=== PATIENT | male | born 1965 | race Caucasian/White ===

== ENCOUNTER 2022-10-31 00:56 | Emergency (ER) | payer OTHER ==
[2022-10-31 01:02] VITALS: BP 131/73; PULSE 80; RESP 18; TEMP 97.9; BMI 30.4
[2022-10-31] MEDS ORDERED: BUPIVACAINE HCL/PF 0.5% (5 MG/ML) 30 ML VIAL IJ ONE (01:29)
[2022-10-31] MEDS ORDERED: BUPIVACAINE HCL/PF 0.5% (5MG/ML) 10 ML VIAL ONE (01:30)
[2022-10-31] MEDS ORDERED: AMOX TR/POT CLAV 875MG/125MG TABLETS (FP) PO ONE (02:01)
[2022-10-31] MEDS ORDERED: AMOX TR/POT CLAV 875MG/125MG TABLETS (FP) ONE (02:24)
== END 2022-10-31 02:38 | disposition home or self-care (01) ==
LOC: JER 00:56
DX: K08.89 Other specified disorders of teeth and supporting structures (principal); G89.29 Other chronic pain; K04.7 Periapical abscess without sinus; R22.0 Localized swelling, mass and lump, head
CPT/HCPCS: 99283-25

== ENCOUNTER 2022-10-31 03:05 | Inpatient (IN) | payer OTHER ==
[2022-10-31 03:25] VITALS: BMI 30.4
[2022-10-31] MEDS ORDERED: hydrOXYzine PAMOATE 25 MG CAPSULE (FP) PO PRN (03:26)
[2022-10-31] MEDS ORDERED: POLYETHYLENE GLYCOL (HEALTHYLAX) 3350 17 GM PACKET PO PRN (03:26)
[2022-10-31] MEDS ORDERED: IBUPROFEN 400 MG TABLET (FP) PO PRN (03:26)
[2022-10-31] MEDS ORDERED: LOPERAMIDE HCL 2 MG CAPSULE PO PRN (03:26)
[2022-10-31] MEDS ORDERED: BISMUTH SUBSALICYLATE 524 MG/30 ML PO PRN (03:26)
[2022-10-31] MEDS ORDERED: MAG HYDROX/AL HYDROX/SIMETH 30 ML UNIT-DOSE CUP PO PRN (03:26)
[2022-10-31] MEDS ORDERED: MAGNESIUM HYDROX 2400MG/30ML ORAL SUSPENSION 30 ML CUP PO PRN (03:26)
[2022-10-31] MEDS ORDERED: BENZONATATE 200 MG CAPSULE PO PRN (03:26)
[2022-10-31] MEDS ORDERED: ONDANSETRON *ODT* 4 MG TABLET SL PRN (03:26)
[2022-10-31] MEDS ORDERED: guaiFENesin 600 MG TABLET.ER (FP) PO PRN (03:26)
[2022-10-31] MEDS ORDERED: NALOXONE HCL (KLOXXADO) 8 MG SPRAY NS PRN (03:26)
[2022-10-31] MEDS ORDERED: BENZOCAINE/MENTHOL (CHLORASEPTIC ) LOZENGE MM PRN (03:26)
[2022-10-31] MEDS ORDERED: DICYCLOMINE HCL 10 MG CAPSULE PO PRN (03:26)
[2022-10-31] MEDS ORDERED: METHOCARBAMOL 500 MG TABLET PO PRN (03:26)
[2022-10-31] MEDS ORDERED: NALOXONE HCL 0.4 MG/ML VIAL IM PRN (03:26)
[2022-10-31] MEDS ORDERED: ACETAMINOPHEN 325 MG TABLET (FP) PO PRN (03:26)
[2022-10-31] MEDS: AMOX TR/POT CLAV 875MG/125MG TABLETS (FP) PO SCH ×2 (08:01→17:32)
[2022-10-31] MEDS: IBUPROFEN 600 MG TABLET (FP) PO PRN ×2 (08:03→15:46)
[2022-10-31] MEDS ORDERED: LORazepam 1 MG TABLET PO PRN (10:11)
[2022-10-31] MEDS: PRENATAL VITAMINS W/ FOLIC ACID TABLET (FP) PO SCH (10:21)
[2022-10-31] MEDS: LORazepam 2 MG TABLET PO SCH ×3 (10:34→22:33)
[2022-10-31 14:32] LABS: POTASSIUM 3.6 mmol/L (3.5-5.1)
[2022-10-31 14:34] LABS: HEMATOCRIT 42.4 % (35.4-49); HEMOGLOBIN 13.9 GM/dL (11.7-16.9); MCH 34.2 pg (25.7-33.7); MCHC 32.9 g/dl (32.0-35.9); MEAN CELL VOLUME 103.8 fl (80-96); MEAN PLT VOLUME 6.9 fl (7.5-11.1); PLATELET COUNT 83 10^3/uL (134-434); RBC 4.08 M/mm3 (4.00-5.60); RDW 15.4 % (11.9-15.9); WHITE BLOOD COUNT 4.4 K/mm3 (4.0-10.0)
[2022-10-31 14:36] LABS: CALCIUM 8.5 mg/dL (8.5-10.1)
[2022-10-31 14:37] LABS: ALBUMIN 2.8 g/dl (3.4-5.0); BLOOD UREA NITROGEN 6.5 mg/dL (7-18)
[2022-10-31 14:40] LABS: CREATININE 0.7 mg/dL (0.55-1.3)
[2022-10-31 14:42] LABS: BILIRUBIN,TOTAL 1.6 mg/dL (0.2-1)
[2022-10-31] MEDS: MELATONIN 5 MG TABLETS PO SCH (22:33)
[2022-10-31] MEDS: THIAMINE HCL 100 MG TABLET (FP) PO SCH (22:33)
[2022-11-01] MEDS: LORazepam 2 MG TABLET PO SCH ×4 (05:55→22:07)
[2022-11-01] MEDS: IBUPROFEN 600 MG TABLET (FP) PO PRN ×3 (05:57→22:09)
[2022-11-01] MEDS: AMOX TR/POT CLAV 875MG/125MG TABLETS (FP) PO SCH ×2 (07:08→17:16)
[2022-11-01] MEDS: FLUoxetine HCL 10 MG CAPSULE PO SCH (10:06)
[2022-11-01] MEDS: PRENATAL VITAMINS W/ FOLIC ACID TABLET (FP) PO SCH (10:07)
[2022-11-01] MEDS: THIAMINE HCL 100 MG TABLET (FP) PO SCH (22:07)
[2022-11-01] MEDS: MELATONIN 5 MG TABLETS PO SCH (22:07)
[2022-11-02] MEDS: LORazepam 1 MG TABLET PO SCH ×4 (05:53→22:14)
[2022-11-02] MEDS: AMOX TR/POT CLAV 875MG/125MG TABLETS (FP) PO SCH ×2 (07:20→17:38)
[2022-11-02] MEDS: FLUoxetine HCL 10 MG CAPSULE PO SCH (10:32)
[2022-11-02] MEDS: PRENATAL VITAMINS W/ FOLIC ACID TABLET (FP) PO SCH (10:32)
[2022-11-02] MEDS: IBUPROFEN 600 MG TABLET (FP) PO PRN (12:43)
[2022-11-02] MEDS: THIAMINE HCL 100 MG TABLET (FP) PO SCH (22:14)
[2022-11-02] MEDS: MELATONIN 5 MG TABLETS PO SCH (22:14)
[2022-11-03] MEDS ORDERED: LORazepam 0.5 MG TABLET PO PRN
[2022-11-03] MEDS: IBUPROFEN 600 MG TABLET (FP) PO PRN (04:01)
[2022-11-03] MEDS: LORazepam 0.5 MG TABLET PO SCH ×4 (05:33→22:01)
[2022-11-03] MEDS: AMOX TR/POT CLAV 875MG/125MG TABLETS (FP) PO SCH ×2 (07:09→17:38)
[2022-11-03] MEDS: PRENATAL VITAMINS W/ FOLIC ACID TABLET (FP) PO SCH (10:23)
[2022-11-03] MEDS: FLUoxetine HCL 10 MG CAPSULE PO SCH (10:23)
[2022-11-03] MEDS: THIAMINE HCL 100 MG TABLET (FP) PO SCH (22:01)
[2022-11-03] MEDS: MELATONIN 5 MG TABLETS PO SCH (22:01)
[2022-11-04] MEDS ORDERED: LORazepam 0.5 MG TABLET PO ONE (05:00)
[2022-11-04] MEDS: AMOX TR/POT CLAV 875MG/125MG TABLETS (FP) PO SCH (08:25)
[2022-11-04 09:15] VITALS: RESP 18
[2022-11-04] MEDS: PRENATAL VITAMINS W/ FOLIC ACID TABLET (FP) PO SCH (10:11)
[2022-11-04] MEDS: FLUoxetine HCL 10 MG CAPSULE PO SCH (10:11)
[2022-11-04] MEDS: IBUPROFEN 600 MG TABLET (FP) PO PRN (13:10)
[2022-11-04 13:14] VITALS: BP 102/60; PULSE 68; TEMP 98.2
== END 2022-11-04 14:30 | disposition other institution (70) | DRG 775 ==
LOC: YASAS 03:05 → Y3N 03:37
PROVIDERS: ADMIT Allergy & Immunology; ATTEND Allergy & Immunology
PROC: HZ2ZZZZ Detoxification Services for Substance Abuse Treatment (ICD-10-PCS; principal; 2022-10-31)
DX: F10.230 Alcohol dependence with withdrawal, uncomplicated (principal); F31.9 Bipolar disorder, unspecified; K70.30 Alcoholic cirrhosis of liver without ascites; Z86.59 Personal history of other mental and behavioral disorders; Z87.891 Personal history of nicotine dependence
CPT/HCPCS: 36415; 80053; 85027; 86780; 87635; 93005; 93010

== ENCOUNTER 2022-11-04 14:44 | Inpatient (IN) | payer OTHER ==
[2022-11-04] MEDS ORDERED: NALOXONE HCL (KLOXXADO) 8 MG SPRAY NS PRN (19:57)
[2022-11-04] MEDS ORDERED: IBUPROFEN 400 MG TABLET (FP) PO PRN (19:57)
[2022-11-04] MEDS ORDERED: BENZONATATE 200 MG CAPSULE PO PRN (19:57)
[2022-11-04] MEDS ORDERED: POLYETHYLENE GLYCOL (HEALTHYLAX) 3350 17 GM PACKET PO PRN (19:57)
[2022-11-04] MEDS ORDERED: LOPERAMIDE HCL 2 MG CAPSULE PO PRN (19:57)
[2022-11-04] MEDS ORDERED: NALOXONE HCL 0.4 MG/ML VIAL IM PRN (19:57)
[2022-11-04] MEDS ORDERED: COLLOIDAL OATMEAL 1 BAR EACH TP PRN (19:57)
[2022-11-04] MEDS ORDERED: BENZOCAINE/MENTHOL (CHLORASEPTIC ) LOZENGE MM PRN (19:57)
[2022-11-04] MEDS ORDERED: AMMONIUM LACTATE 12% LOTION 225 GM BOTTLE TP PRN (19:57)
[2022-11-04] MEDS ORDERED: MAGNESIUM HYDROX 2400MG/30ML ORAL SUSPENSION 30 ML CUP PO PRN (19:57)
[2022-11-04] MEDS ORDERED: ACETAMINOPHEN 325 MG TABLET (FP) PO PRN (19:57)
[2022-11-04] MEDS ORDERED: guaiFENesin 600 MG TABLET.ER (FP) PO PRN (19:57)
[2022-11-04] MEDS ORDERED: MAG HYDROX/AL HYDROX/SIMETH 30 ML UNIT-DOSE CUP PO PRN (19:57)
[2022-11-04] MEDS: MELATONIN 5 MG TABLETS PO SCH (21:15)
[2022-11-04] MEDS: THIAMINE HCL 100 MG TABLET (FP) PO SCH (21:15)
[2022-11-04] MEDS ORDERED: AMOX TR/POT CLAV 875MG/125MG TABLETS (FP) PO SCH (22:00)
[2022-11-05] MEDS: IBUPROFEN 600 MG TABLET (FP) PO PRN ×2 (06:58→15:29)
[2022-11-05] MEDS: hydrOXYzine PAMOATE 25 MG CAPSULE (FP) PO PRN ×3 (06:58→21:42)
[2022-11-05] MEDS: AMOX TR/POT CLAV 875MG/125MG TABLETS (FP) PO SCH ×2 (06:59→17:53)
[2022-11-05 07:57] LABS: PH,URINE 6.5 (5.0-8.0); URINE APPEARANCE CLEAR; URINE BILIRUBIN NEGATIVE (NEGATIVE); URINE COLOR ORANGE; URINE GLUCOSE (UA) NEGATIVE (NEGATIVE); URINE KETONE NEGATIVE (NEGATIVE); URINE LEUK ESTERASE NEGATIVE (NEGATIVE); URINE NITRITE NEGATIVE (NEGATIVE); URINE PROTEIN NEGATIVE (NEGATIVE)
[2022-11-05] MEDS: PRENATAL VITAMINS W/ FOLIC ACID TABLET (FP) PO SCH (10:13)
[2022-11-05] MEDS: FLUoxetine HCL 10 MG TABLET PO SCH (12:28)
[2022-11-05] MEDS: MELATONIN 5 MG TABLETS PO SCH (21:41)
[2022-11-05] MEDS: THIAMINE HCL 100 MG TABLET (FP) PO SCH (21:41)
[2022-11-06] MEDS: IBUPROFEN 600 MG TABLET (FP) PO PRN ×2 (06:07→14:20)
[2022-11-06] MEDS: hydrOXYzine PAMOATE 25 MG CAPSULE (FP) PO PRN ×2 (06:09→14:20)
[2022-11-06] MEDS: AMOX TR/POT CLAV 875MG/125MG TABLETS (FP) PO SCH ×2 (07:05→18:28)
[2022-11-06] MEDS: FLUoxetine HCL 10 MG TABLET PO SCH (09:45)
[2022-11-06] MEDS: PRENATAL VITAMINS W/ FOLIC ACID TABLET (FP) PO SCH (09:45)
[2022-11-06 11:59] LABS: HEMATOCRIT 42.2 % (35.4-49); HEMOGLOBIN 14.2 GM/dL (11.7-16.9); MCH 34.8 pg (25.7-33.7); MCHC 33.7 g/dl (32.0-35.9); MEAN CELL VOLUME 103.1 fl (80-96); MEAN PLT VOLUME 7.3 fl (7.5-11.1); PLATELET COUNT 87 10^3/uL (134-434); RDW 15.2 % (11.9-15.9)
[2022-11-06 12:27] LABS: POTASSIUM 3.7 mmol/L (3.5-5.1)
[2022-11-06 12:29] LABS: CALCIUM 7.9 mg/dL (8.5-10.1)
[2022-11-06 12:30] LABS: ALBUMIN 2.9 g/dl (3.4-5.0); BLOOD UREA NITROGEN 9.8 mg/dL (7-18)
[2022-11-06 12:33] LABS: CREATININE 0.8 mg/dL (0.55-1.3)
[2022-11-06 12:35] LABS: BILIRUBIN,TOTAL 1.2 mg/dL (0.2-1); TOT PROT 6.7 g/dl (6.4-8.2)
[2022-11-06 12:54] LABS: SYPHILIS W/ RPR CONF NON-REACTIVE (NONREACTIVE)
[2022-11-06] MEDS: MELATONIN 5 MG TABLETS PO SCH (21:24)
[2022-11-06] MEDS: THIAMINE HCL 100 MG TABLET (FP) PO SCH (21:24)
[2022-11-07] MEDS: AMOX TR/POT CLAV 875MG/125MG TABLETS (FP) PO SCH ×2 (07:03→17:51)
[2022-11-07] MEDS: PRENATAL VITAMINS W/ FOLIC ACID TABLET (FP) PO SCH (09:55)
[2022-11-07] MEDS: FLUoxetine HCL 10 MG TABLET PO SCH (09:55)
[2022-11-07 13:57] LABS: INR 1.26 (0.83-1.09); PROTHROMBIN TIME (PATIENT) 14.6 SEC (9.7-13.0)
[2022-11-07] MEDS: hydrOXYzine PAMOATE 25 MG CAPSULE (FP) PO PRN (14:28)
[2022-11-07 14:31] LABS: MAGNESIUM 2.1 mg/dL (1.8-2.4)
[2022-11-07] MEDS: LACTULOSE 20 GM/30 ML UDC (FOR ORAL USE ONLY) PO SCH (21:05)
[2022-11-07] MEDS: MELATONIN 5 MG TABLETS PO SCH (21:05)
[2022-11-07] MEDS: THIAMINE HCL 100 MG TABLET (FP) PO SCH (21:05)
[2022-11-07] MEDS: RIFAXIMIN 550 MG TABLET PO SCH (21:06)
[2022-11-08] MEDS: LACTULOSE 20 GM/30 ML UDC (FOR ORAL USE ONLY) PO SCH ×3 (06:01→21:18)
[2022-11-08] MEDS: AMOX TR/POT CLAV 875MG/125MG TABLETS (FP) PO SCH ×2 (07:03→16:37)
[2022-11-08] MEDS: RIFAXIMIN 550 MG TABLET PO SCH ×2 (09:39→21:18)
[2022-11-08] MEDS: FLUoxetine HCL 10 MG TABLET PO SCH (09:39)
[2022-11-08] MEDS: PRENATAL VITAMINS W/ FOLIC ACID TABLET (FP) PO SCH (09:39)
[2022-11-08] MEDS: THIAMINE HCL 100 MG TABLET (FP) PO SCH (21:17)
[2022-11-08] MEDS: MELATONIN 5 MG TABLETS PO SCH (21:17)
[2022-11-09] MEDS: LACTULOSE 20 GM/30 ML UDC (FOR ORAL USE ONLY) PO SCH ×3 (05:56→21:13)
[2022-11-09] MEDS: AMOX TR/POT CLAV 875MG/125MG TABLETS (FP) PO SCH ×2 (07:04→16:31)
[2022-11-09] MEDS: hydrOXYzine PAMOATE 25 MG CAPSULE (FP) PO PRN (08:13)
[2022-11-09] MEDS: RIFAXIMIN 550 MG TABLET PO SCH ×2 (09:47→21:13)
[2022-11-09] MEDS: PRENATAL VITAMINS W/ FOLIC ACID TABLET (FP) PO SCH (09:47)
[2022-11-09] MEDS: FLUoxetine HCL 10 MG TABLET PO SCH (09:47)
[2022-11-09] MEDS: THIAMINE HCL 100 MG TABLET (FP) PO SCH (21:13)
[2022-11-09] MEDS: MELATONIN 5 MG TABLETS PO SCH (21:13)
[2022-11-10] MEDS: LACTULOSE 20 GM/30 ML UDC (FOR ORAL USE ONLY) PO SCH ×3 (06:03→21:28)
[2022-11-10] MEDS: AMOX TR/POT CLAV 875MG/125MG TABLETS (FP) PO SCH (07:01)
[2022-11-10] MEDS: hydrOXYzine PAMOATE 25 MG CAPSULE (FP) PO PRN (08:08)
[2022-11-10] MEDS: RIFAXIMIN 550 MG TABLET PO SCH ×2 (09:38→21:29)
[2022-11-10] MEDS: PRENATAL VITAMINS W/ FOLIC ACID TABLET (FP) PO SCH (09:38)
[2022-11-10] MEDS: FLUoxetine HCL 10 MG TABLET PO SCH (09:38)
[2022-11-10] MEDS: MELATONIN 5 MG TABLETS PO SCH (21:29)
[2022-11-10] MEDS: THIAMINE HCL 100 MG TABLET (FP) PO SCH (21:29)
[2022-11-11] MEDS: LACTULOSE 20 GM/30 ML UDC (FOR ORAL USE ONLY) PO SCH ×3 (06:42→21:10)
[2022-11-11] MEDS: FLUoxetine HCL 10 MG TABLET PO SCH (09:42)
[2022-11-11] MEDS: RIFAXIMIN 550 MG TABLET PO SCH ×2 (09:42→21:10)
[2022-11-11] MEDS: PRENATAL VITAMINS W/ FOLIC ACID TABLET (FP) PO SCH (09:42)
[2022-11-11] MEDS: hydrOXYzine PAMOATE 25 MG CAPSULE (FP) PO PRN (09:43)
[2022-11-11] MEDS: MELATONIN 5 MG TABLETS PO SCH (21:10)
[2022-11-11] MEDS: THIAMINE HCL 100 MG TABLET (FP) PO SCH (21:10)
[2022-11-12] MEDS: LACTULOSE 20 GM/30 ML UDC (FOR ORAL USE ONLY) PO SCH ×3 (05:49→21:22)
[2022-11-12] MEDS: PRENATAL VITAMINS W/ FOLIC ACID TABLET (FP) PO SCH (09:33)
[2022-11-12] MEDS: FLUoxetine HCL 10 MG TABLET PO SCH (09:33)
[2022-11-12] MEDS: RIFAXIMIN 550 MG TABLET PO SCH ×2 (09:33→21:23)
[2022-11-12] MEDS: hydrOXYzine PAMOATE 25 MG CAPSULE (FP) PO PRN ×2 (09:33→21:23)
[2022-11-12] MEDS: MELATONIN 5 MG TABLETS PO SCH (21:22)
[2022-11-12] MEDS: THIAMINE HCL 100 MG TABLET (FP) PO SCH (21:22)
[2022-11-13] MEDS: LACTULOSE 20 GM/30 ML UDC (FOR ORAL USE ONLY) PO SCH ×3 (05:55→21:24)
[2022-11-13] MEDS: PRENATAL VITAMINS W/ FOLIC ACID TABLET (FP) PO SCH (09:37)
[2022-11-13] MEDS: hydrOXYzine PAMOATE 25 MG CAPSULE (FP) PO PRN ×2 (09:37→21:25)
[2022-11-13] MEDS: RIFAXIMIN 550 MG TABLET PO SCH ×2 (09:37→21:24)
[2022-11-13] MEDS: FLUoxetine HCL 10 MG TABLET PO SCH (09:38)
[2022-11-13 12:05] LABS: HEMOGLOBIN 15.2 GM/dL (11.7-16.9); MCH 35.1 pg (25.7-33.7); MCHC 34.5 g/dl (32.0-35.9); MEAN CELL VOLUME 101.7 fl (80-96); PLATELET COUNT 120 10^3/uL (134-434); RBC 4.33 M/mm3 (4.00-5.60); RDW 15.1 % (11.9-15.9); WHITE BLOOD COUNT 7.2 K/mm3 (4.0-10.0)
[2022-11-13 12:13] LABS: POTASSIUM 3.4 mmol/L (3.5-5.1)
[2022-11-13 12:14] LABS: INR 1.2 (0.83-1.09); PROTHROMBIN TIME (PATIENT) 13.9 SEC (9.7-13.0)
[2022-11-13 12:23] LABS: ALBUMIN 3.1 g/dl (3.4-5.0); BLOOD UREA NITROGEN 8.4 mg/dL (7-18)
[2022-11-13 12:24] LABS: CALCIUM 8.4 mg/dL (8.5-10.1)
[2022-11-13 12:26] LABS: CREATININE 0.9 mg/dL (0.55-1.3)
[2022-11-13 12:27] LABS: TOT PROT 7.6 g/dl (6.4-8.2)
[2022-11-13 12:28] LABS: BILIRUBIN,TOTAL 0.8 mg/dL (0.2-1)
[2022-11-13 12:35] LABS: ANISOCYTOSIS 0; HELMET CELLS 0; HOWELL-JOLLY BODIES 0; MACROCYTOSIS 0; OVALOCYTE 0; ROULEAU 0; SICKELED CELLS 0; TARGET CELLS 0; TEAR DROP CELLS 0; TOXIC GRANULATION 0
[2022-11-13] MEDS: THIAMINE HCL 100 MG TABLET (FP) PO SCH (21:24)
[2022-11-13] MEDS: MELATONIN 5 MG TABLETS PO SCH (21:24)
[2022-11-14] MEDS: LACTULOSE 20 GM/30 ML UDC (FOR ORAL USE ONLY) PO SCH ×3 (06:22→21:05)
[2022-11-14] MEDS: FLUoxetine HCL 20 MG CAPSULE PO SCH (09:48)
[2022-11-14] MEDS: RIFAXIMIN 550 MG TABLET PO SCH ×2 (09:48→21:05)
[2022-11-14] MEDS: hydrOXYzine PAMOATE 50 MG CAPSULE (FP) PO PRN ×2 (09:48→18:11)
[2022-11-14] MEDS: PRENATAL VITAMINS W/ FOLIC ACID TABLET (FP) PO SCH (09:48)
[2022-11-14] MEDS ORDERED: CYANOCOBALAMIN (VITAMIN B-12) 1000 MCG/1 ML VIAL IM ONE (11:45)
[2022-11-14] MEDS: NALTREXONE HCL 50 MG TABLET PO SCH (11:58)
[2022-11-14] MEDS: POTASSIUM CHLORIDE TABS 20 MEQ TABLET.ER (FP) PO SCH (18:11)
[2022-11-14] MEDS: MELATONIN 5 MG TABLETS PO SCH (21:05)
[2022-11-14] MEDS: THIAMINE HCL 100 MG TABLET (FP) PO SCH (21:05)
[2022-11-15] MEDS: LACTULOSE 20 GM/30 ML UDC (FOR ORAL USE ONLY) PO SCH ×3 (05:56→21:20)
[2022-11-15] MEDS: hydrOXYzine PAMOATE 50 MG CAPSULE (FP) PO PRN ×3 (05:56→21:21)
[2022-11-15] MEDS: NALTREXONE HCL 50 MG TABLET PO SCH (09:54)
[2022-11-15] MEDS: RIFAXIMIN 550 MG TABLET PO SCH ×2 (09:54→21:20)
[2022-11-15] MEDS: PRENATAL VITAMINS W/ FOLIC ACID TABLET (FP) PO SCH (09:55)
[2022-11-15] MEDS: FLUoxetine HCL 20 MG CAPSULE PO SCH (09:55)
[2022-11-15] MEDS: POTASSIUM CHLORIDE TABS 20 MEQ TABLET.ER (FP) PO SCH ×2 (09:55→18:08)
[2022-11-15] MEDS: MELATONIN 5 MG TABLETS PO SCH (21:20)
[2022-11-15] MEDS: THIAMINE HCL 100 MG TABLET (FP) PO SCH (21:20)
[2022-11-16] MEDS: LACTULOSE 20 GM/30 ML UDC (FOR ORAL USE ONLY) PO SCH ×3 (06:00→21:05)
[2022-11-16] MEDS: hydrOXYzine PAMOATE 50 MG CAPSULE (FP) PO PRN ×3 (06:01→21:05)
[2022-11-16] MEDS: POTASSIUM CHLORIDE TABS 20 MEQ TABLET.ER (FP) PO SCH ×2 (10:13→19:00)
[2022-11-16] MEDS: NALTREXONE HCL 50 MG TABLET PO SCH (10:13)
[2022-11-16] MEDS: FLUoxetine HCL 20 MG CAPSULE PO SCH (10:13)
[2022-11-16] MEDS: RIFAXIMIN 550 MG TABLET PO SCH ×2 (10:13→21:05)
[2022-11-16 10:14] VITALS: RESP 18
[2022-11-16] MEDS: PRENATAL VITAMINS W/ FOLIC ACID TABLET (FP) PO SCH (11:07)
[2022-11-16] MEDS: MELATONIN 5 MG TABLETS PO SCH (21:05)
[2022-11-16] MEDS: THIAMINE HCL 100 MG TABLET (FP) PO SCH (21:05)
[2022-11-17] MEDS: hydrOXYzine PAMOATE 50 MG CAPSULE (FP) PO PRN (05:56)
[2022-11-17] MEDS: LACTULOSE 20 GM/30 ML UDC (FOR ORAL USE ONLY) PO SCH (05:56)
[2022-11-17 07:03] VITALS: BP 110/70; PULSE 59; TEMP 98
[2022-11-17] MEDS: NALTREXONE HCL 50 MG TABLET PO SCH (09:17)
[2022-11-17] MEDS: POTASSIUM CHLORIDE TABS 20 MEQ TABLET.ER (FP) PO SCH (09:17)
[2022-11-17] MEDS: PRENATAL VITAMINS W/ FOLIC ACID TABLET (FP) PO SCH (09:17)
[2022-11-17] MEDS: FLUoxetine HCL 20 MG CAPSULE PO SCH (09:17)
[2022-11-17] MEDS: RIFAXIMIN 550 MG TABLET PO SCH (09:17)
== END 2022-11-17 09:26 | disposition home or self-care (01) | DRG 772 ==
LOC: YASAS 14:44 → Y3W 14:46
PROVIDERS: ADMIT Allergy & Immunology; ATTEND Psychiatry & Neurology Pain Medicine
PROC: HZ42ZZZ Group Counseling for Substance Abuse Treatment, Cognitive-Behavioral (ICD-10-PCS; principal; 2022-11-04)
DX: F10.20 Alcohol dependence, uncomplicated (principal); F31.9 Bipolar disorder, unspecified; E72.20 Disorder of urea cycle metabolism, unspecified; E87.6 Hypokalemia; D53.1 Other megaloblastic anemias, not elsewhere classified; K70.30 Alcoholic cirrhosis of liver without ascites; K04.7 Periapical abscess without sinus; R79.1 Abnormal coagulation profile; Z87.891 Personal history of nicotine dependence
CPT/HCPCS: 36415; 80053; 81003; 82140; 82607; 82652; 82746; 83735; 85025; 85027; 85610; 86780; 86803